=== PATIENT | male | born 1960 | race Caucasian/White ===

== ENCOUNTER 2018-04-22 21:05 | Emergency (ER) | payer OTHER ==
--- NOTE | 2018-04-22 21:19 | EDPHY ---
Addendum entered and electronically signed by Jf Sneed, PAC 04/22/18 22:52 : Correction: There is injection to the right orbit Original Note: H & P Stated Complaint: ball to R eye - Personal History Current Tetanus/Diphtheria Vaccine: Unsure Current Tetanus Diphtheria and Acellular Pertussis (TDAP): Unsure - Medical/Surgical History Hx Asthma: No Hx Chronic Respiratory Disease: No Hx Diabetes: No Hx Cardiac Disease: No Hx Renal Disease: No Hx Cirrhosis: No Hx Alcoholism: No Hx HIV/AIDS: No Hx Splenectomy or Spleen Trauma: No - Social History Smoking Status: Former smoker Time Seen by Provider: 04/22/18 21:18 - Physical Exam Exam: Requested by Dr. Joseph Brice to perform ocular examination OCULAR EXAM: Visual Acuity: noted from Nurse's notes. Pupils:equal round and reactive to light EOMI Lids: no edema or swelling, upper and lower lids were everted and no foreign bodies were visualized, no areas of increased fluorescein uptake. Skin: no proptosis, no periorbital erythema or swelling, no vesicles, no pain with extraocular movements. Conjunctivae: not injected, no discharge, negative Chet test. Cornea: exam with fluorescein shows no areas of increased uptake, no abrasion laceration no dendrites. Tonometry is 16 Anterior chamber:normal, no hyphema or hypopyon Procedure: Laceration repair with tissue adhesive Requested by Dr. Joseph Brice perform wound closure Verbal consent was obtained from the patient. The 2.5 cm transverse superficial laceration on the right infraorbital region was anesthetized with 1 % lidocaine with epinephrine. The wound was scrubbed and explored to its base with a gloved finger. No foreign body seen, no foreign bodies palpated. There were no deep structures involved. The wound was repaired with tissue adhesive. The procedure was performed by myself. Patient has been informed that scarring will occur, although every effort has been made to minimize this. (Jf Sneed) Constitutional: Initial Vital Signs Temperature (C) 36.8 C 04/22/18 21:06 Heart Rate 66 04/22/18 21:06 Respiratory Rate 16 04/22/18 21:06 Blood Pressure 148/93 H 04/22/18 21:06 O2 Sat (%) 96 04/22/18 21:06 O2 Delivery Mode Room Air Allergies/Adverse Reactions: fentanyl Allergy (Verified 04/22/18 21:09) meperidine [From Demerol] Allergy (Verified 04/22/18 21:09) Medical Decision Making - Diagnostics Imaging: Discussed imaging studies w/ orthopedically impaired teacher Radiologist, I viewed and interpreted images myself ED Course/Re-evaluation: CHIEF COMPLAINT: Right eye injury HISTORY OF PRESENT ILLNESS: The patient is a 57 y/o male arriving with his family complaining of a right eye injury after he was unintentionally struck with a baseball this evening. He is still able to see with some blurriness and has pain around his right eye. No other injuries. He is normally healthy and does not use anticoagulants. REVIEW OF SYSTEMS: A 10 point review of systems was performed and is negative with the exception of the elements mentioned in the history of present illness. PHYSICAL EXAM: HR, BP, O2 Sat, RR. Temp noted General Appearance: Alert, well hydrated, appropriate, and non-toxic appearing. Head: No scalp tenderness or obvious injury apart from right eye Eyes: Visual Acuity: Noted from Nurse's notes. Pupils: PERRLA, EOMI, no nystagmus, mild right conjunctival injection. Lids: Right edema or swelling Skin: No proptosis, periorbital swelling, no vesicles, depression around right orbit, infraorbital laceration. Conjunctivae: Right side injected, not icteric, no discharge Slit lamp exam deferred to MARTIN. Ears: Clear bilaterally, no perforation, normal landmarks Nose: Atraumatic, no rhinorrhea, clear. Throat: Mucus membranes moist. Neck: Supple, nontender. Respiratory: No distress Cardiovascular: Good capillary refill all extremities. Musculoskeletal: Normal active ROM of all extremities, atraumatic. Neurological: Alert, appropriate, and interactive. Nonfocal. Skin: No rashes, good turgor, no nodules on palpation. Past medical history: Denies Past surgical history: Denies Family history: Noncontributory Social history: Family at bedside. Former smoker. DIAGNOSTICS/PROCEDURES/CRITICAL CARE TIME: Maxillofacial CT: right orbital fracture, small nasal bone fracture Laceration repair with Dermabond by MARTIN Sneed. DIFFERENTIAL DIAGNOSIS: The differential diagnosis for the patient's injury included but was not limited to orbital fractures, globe trauma, concussion, skull fracture, intra-parenchymal contusion, subarachnoid, subdural and epidural hematoma. MEDICAL DECISION MAKING: This is a healthy 57 y/o male who presents with an isolated injury to his right eye and periorbital area secondary to being struck by a baseball tonight. He has right periorbital swelling, mild right conjunctival injection, and a right infraorbital laceration on exam. Slit lamp exam by MARTIN Sneed was normal. Visual acuity is at baseline. Pupil is normally reactive and there is no evidence of entrapment. Plan for wound care and maxillofacial CT to evaluate for orbital fracture and other trauma. CT shows right orbital fracture and small nasal bone fracture. Reassessed patient and discussed findings. He will be discharged home with referral to ophthalmology and orbit fracture specialist. Ice and ibuprofen as needed for pain. Return precautions discussed. He is comfortable with this plan. (Joseph Brice) - Data Points Laboratory Results: 04/22/18 21:21 POC Creatinine 0.8 mg/dL mg/dL (0.7-1.3) Point of Care Test Results: Chemistry 04/22/18 21:21 POC Creatinine 0.8 mg/dL mg/dL (0.7-1.3) Departure - Departure Disposition: Home, Routine, Self-Care Clinical Impression: Facial laceration Qualifiers: Encounter type: initial encounter Qualified Code(s): S01.81XA - Laceration without foreign body of other part of head, initial encounter Orbit fracture, right Qualifiers: Encounter type: initial encounter Fracture type: closed Qualified Code(s): S02.81XA - Fracture of other specified skull and facial bones, right side, initial encounter for closed fracture Nasal bone fracture Qualifiers: Encounter type: initial encounter Fracture type: closed Qualified Code(s): S02.2XXA - Fracture of nasal bones, initial encounter for closed fracture Condition: Good Instructions: Nasal Fracture (ED), Facial Fracture (ED), Skin Adhesive Care (ED ), Facial Laceration (ED) Additional Instructions: 1. Skin adhesive will slowly fall off over time. Do not scrub the area or apply any topical agents to it. Once wound has healed, apply sunscreen to the area daily to minimize appearance of scarring. 2. Take 800mg ibuprofen every 8 hours as needed for pain over the next few days. Apply ice to sore areas intermittently over the next 1-2 days and expect to feel more sore tomorrow. 3. Follow up with pipe bowls paint trimmer on Wednesday for eye recheck. Also call Dr. Richards's office Wednesday to arrange follow up on your orbital and nasal bone fractures. 4. Return to the ED for severe pain, vision changes, severe headache, weakness or numbness on one side of your body, or other worsening of condition. Referrals: Angel Solomon MD [Medical Doctor] - As per Instructions Alton Richards MD [Medical Doctor] - As per Instructions Report Scribed for: Joseph Brice Report Scribed by: Georgia Gutierrez Date of Report: 04/22/18 Time of Report: 22:50
[2018-04-22] MEDS ORDERED: SKIN ADHESIVE (DERMABOND) 1 EACH TP ONE (22:18)
[2018-04-22 23:18] VITALS: BP 138/78
== END 2018-04-22 23:34 | disposition home or self-care (01) ==
PROC: 0HQ1XZZ Repair Face Skin, External Approach (ICD-10-PCS; principal; 2018-04-22)
DX: S02.81XA Fracture of other specified skull and facial bones, right side, initial encounter for closed fracture (principal); S01.81XA Laceration without foreign body of other part of head, initial encounter; S02.2XXA Fracture of nasal bones, initial encounter for closed fracture; W21.03XA Struck by baseball, initial encounter; Z87.891 Personal history of nicotine dependence
CPT/HCPCS: 82565-PO